=== PATIENT | female | born 1990 | race Caucasian/White ===

== ENCOUNTER → 2021-08-06 14:19 | Outpatient (CLI) | payer MEDICAID, SELFPAY | PROVIDERS: Visit Provider Obstetrics & Gynecology | DX: Z34.90 Encounter for supervision of normal pregnancy, unspecified, unspecified trimester (principal) | CPT/HCPCS: 36415; 84702 ==

== ENCOUNTER → 2021-09-02 13:26 | Outpatient (CLI) | payer MEDICAID, SELFPAY ==
--- NOTE | 2021-09-02 13:26 | US_ITS ---
PROCEDURE: US OB <= 14 WEEKS FETUS CLINICAL INDICATION: dates COMPARISON: No exams were available for comparison FINDINGS: An intrauterine gestational sac is present with a pole with a crown-rump length of 5.32cm correlating to gestational age of 12weeks. heart tones are present with an FHR of 154bpm. Yolk sac is noted. Placenta is forming posteriorly. IMPRESSION: Live IUP at 12 weeks Estimated due date by Ultrasound is 03/17/2022 Dictated by: Niels Fair MD 09/02/2021 18:31 Niels Fair MD in OV 09/02/2021 18:31
== END ==
PROVIDERS: PCP Nurse Practitioner Family; Visit Provider Obstetrics & Gynecology
DX: Z34.90 Encounter for supervision of normal pregnancy, unspecified, unspecified trimester (principal)
CPT/HCPCS: 76801

== ENCOUNTER → 2021-09-16 11:56 | Outpatient (CLI) | payer MEDICAID, SELFPAY ==
[2021-09-16 12:31] LABS: Basophils # 0.1 K/mm3 (0-0.2); Basophils % 0.5 % (0.1-2.0); Eosinophils # 2.2 K/mm3 (0.0-0.4); Eosinophils % 20.6 % (0.1-12.0); Hematocrit 37.3 % (37.0-47.0); Hemoglobin 13.1 g/dL (12.2-16.2); Lymphocytes # 1.7 K/mm3 (0.7-4.5); Lymphocytes % 16.1 % (10-50); Mean Corpuscular HGB Conc 35.2 g/dL (31.8-35.4); Mean Corpuscular Hemoglobin 31.5 pg (27.0-31.2); Mean Corpuscular Volume 89.4 fl (81-99); Mean Platelet Volume 8.9 fl (7.4-10.4); Monocytes # 0.4 K/mm3 (0.1-1.0); Monocytes % 3.8 % (1.7-9.3); Neutrophils # 6.4 K/mm3 (1.8-7.8); Platelet Count 193 K/mm3 (142-424); Red Blood Count 4.17 M/mm3 (4.20-5.40); Red Cell Distribution Width 13.8 % (11.5-17.5); White Blood Count 10.8 K/mm3 (4.8-10.8)
[2021-09-17 08:16] LABS: HIV Screen 4th Generation wRfx Non Reactive (Non Reactive); Rubella Antibodies, IgG <0.90 index (Immune >0.99)
[2021-09-17 11:47] LABS: Rapid Plasma Reagin Ab Titer Non Reactive (NonRea<1:1)
[2021-09-17 13:22] LABS: Hepatitis B Surface Antigen Negative (Negative); Hepatitis C Antibody <0.1 s/co ratio (0.0-0.9)
== END ==
PROVIDERS: Visit Provider Obstetrics & Gynecology
DX: Z34.90 Encounter for supervision of normal pregnancy, unspecified, unspecified trimester (principal)
CPT/HCPCS: 36415; 85025; 86592; 86703; 86762; 86850; 87340; 87380; G0432

== ENCOUNTER 2021-09-18 13:16 | Emergency (ER) | payer MEDICAID, SELFPAY ==
[2021-09-18 14:30] VITALS: BP 112/83; PULSE 91; RESP 19; TEMP 36.8; O2SAT 98; BMI 39.6
--- NOTE | 2021-09-18 14:46 | CA_ITS ---
APPROVED REPORT Right Upper Extremity Venous Study for DVT. Combustion Analyst: Tessa Thapa RVT Indications Upper Extremity Pain: Right Upper Extremity Edema: Right swelling rt hand/forearm,nki Vein Imaging IJV (R): Normal phasic flow is seen. Normal flow, augmentation and compression is seen. No evidence of Deep Vein Thrombosis. No abnormalities are demonstrated. SCV (R): Normal phasic flow is seen. Normal flow, augmentation and compression is seen. No evidence of Deep Vein Thrombosis. No abnormalities are demonstrated. Axillary (R): Normal phasic flow is seen. Normal flow, augmentation and compression is seen. No evidence of Deep Vein Thrombosis. No abnormalities are demonstrated. Brachial (R): Normal phasic flow is seen. Normal flow, augmentation and compression is seen. No evidence of Deep Vein Thrombosis. No abnormalities are demonstrated. Basilic (R): Compressible Cephalic (R): Compressible Radial (R): Compressible Ulnar (R): Compressible Findings Study suggests no evidence of DVT or SVT of the right upper extremity. Conclusion Study suggests no evidence of DVT or SVT of the right upper extremity. Critical Notification Physician Notified Date: 09/18/2021 Time: 15:32 Physician Name: Eboni Solitario Electronically signed by : Niels Fair MD 09/18/2021 17:17:48
--- NOTE | 2021-09-18 15:02 | HMH.EDUTC ---
[facility] [place] Clinical Impression: Wrist pain Qualifiers: Laterality: right Qualified Code(s): M25.531 - Pain in right wrist Disposition: Home, Self-Care Condition on Discharge: Good Instructions: DI for Wrist Pain Additional Instructions: *RICE, Rest the extremity, Ice 15-20 minutes 3-4 times daily, Compress- wear the castro wrap as discussed as much as possible to help reduce swelling and pain, Elevate the extremity when at rest *Castro wrap/Velcrol wrist splint is for support and help control swelling, use it except in the shower. Be sure that is not to tight but not to loose either *Elevate when resting Tylenol for pain Immediately follow up with your family doctor for new or worsening of symptoms, or no noticeable improvement over the next 3-5 days Referrals: Netta Joy [Primary Care Provider] - As needed Time of Disposition: 15:45 Medical Decision Making - Benedict Inquiry Pt receiving controlled substance: No Benedict was queried for this patient: No Vital Signs: 09/18/21 14:30 Temperature 98.3 F Temperature Source Oral Pulse Rate [Left Brachial] 91 H Respiratory Rate 19 Blood Pressure [Left Arm] 112/83 Blood Pressure Mean [Left Arm] 92 Blood Pressure Source [Left Arm] Automatic Cuff Blood Pressure Position [Left Arm] Sitting 02 Sat by Pulse Oximetry 98 Oxygen Delivery Method Room Air - US Data US Images: Upper Extremity ED US Reviewed: Yes: I have viewed radiologist's interpretation Preliminary Findings: Normal/NAD Findings Narrative: Conclusion Study suggests no evidence of DVT or SVT of the right upper extremity. [facility] [place] HPI - General Stated complaint: swollen right arm, no accident Time Seen by Provider: 09/18/21 15:02 Mode of Arrival: Ambulatory Source of Information: Patient Limitations: No Limitations Description of Symptoms (Recalled from Triage Doc. by RN): PATIENT C/O PAIN AND SWELLING TO RIGHT WRIST AND HAND SINCE YESTERDAY. DENIES INJURY. 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 and unsure if she may have hurt it that way - Related Data Home Medications Medication Instructions Recorded Confirmed hydrocortisone 1 % topical cream 1 applic TOPICAL QID PRN 09/16/21 09/16/21 Previous Rx's Medication Instructions Recorded prenat.vits,marianne,[id number] 1 tab PO DAILY #30 tab 09/16/21 Allergies Allergy/AdvReac Type Severity Reaction Status Date / Time tramadol Allergy Mild NA-NAUSEA Verified 09/16/21 10:58 latex Allergy Unknown I-RASH Verified 09/16/21 10:58 - Worker's Comp Is this a Worker's Comp case?: No [facility] History - Hepatitis A Screen Drug use history?: No High risk sexual behaviors?: No History of sexually transmitted infection?: No Currently employed?: No Childcare worker?: No Do you have indoor plumbing?: Yes Do you have electricity?: Yes Attestation statement:: This patient has been screened for Hepatitis A risk factors. I have reviewed the patient's past medical history: Yes Medical History: Reports:: Anxiety Amputation: No Fractures: No Comment: nerve repair on right arm. endometriosis - Social History Smoking Status: Current every day smoker Tobacco Type: cigarettes # Packs/Day (cigarettes): 1 Alcohol Intake: never Substance Use Type: denies use Occupational Status: employed - Psychiatric History Pschychiatric History:: Reports:: Anxiety Family Hx:: S
[2021-09-18 15:54] VITALS: BP 112/83; PULSE 91; RESP 19; TEMP 36.8; O2SAT 98
== END 2021-09-18 16:04 | disposition home or self-care (01) ==
PROVIDERS: Emergency Provider Nurse Practitioner; PCP Nurse Practitioner Family
DX: M25.531 Pain in right wrist (principal); Z3A.16 16 weeks gestation of pregnancy
CPT/HCPCS: 29125; 93971; 99202; G0463

== ENCOUNTER → 2021-10-31 13:12 | Outpatient (CLI) | payer MEDICAID, SELFPAY ==
--- NOTE | 2021-10-31 13:15 | US_ITS ---
PROCEDURE INFORMATION: Exam: US After First Trimester, Transabdominal Exam date and time: 10/31/2021 1:15 PM Age: 31 years old Clinical indication: Screening exam; Routine US, uterus; Additional info: Anatomy scan TECHNIQUE: Imaging protocol: Real-time transabdominal obstetrical ultrasound of the maternal pelvis and a second or third trimester with image documentation. COMPARISON: US OB <= 14 WEEKS FETUS 09/02/2021 1:54 PM FINDINGS: Gestation: Single live intrauterine gestation. heart rate: heart rate 142 bpm. presentation: Placenta: Placenta is posterior and anterior. Amniotic fluid: See Intraperitoneal space finding. ANATOMY: Anatomic survey:(No perinephric fluid collections or hydronephrosis. No gross osseous abnormality. Fluid within the stomach and urinary bladder. No defect at the cord insertion site. Ventricular outflow tracts not imaged. Amniotic fluid appears sufficient. Cerebellar distance 2 cm. Nose and lips appear unremarkable. Diaphragm appears unremarkable. No defect at the cord insertion site. Lateral ventricle subcentimeter in size). BIOMETRY: Estimated due date (AUA): Estimated due date 03-19-22 by ultrasound and 03-02-22 by last menstrual period. Gestational age (AUA): Single live intrauterine gestation with the estimated gestational age of approximately 20 weeks 1 day by ultrasound and 22 weeks 4 days by last menstrual period. Estimated weight: 351 g. Second percentile based on last menstrual period. Biparietal diameter (BPD): 4.5 cm. Nineteen weeks 4 days. Head circumference (HC): 16.5 cm. Nineteen weeks 2 days. Abdominal circumference (AC): 15.1 cm. Twenty weeks 3 days. Femur length (FL): 3.5 cm. Twenty-one weeks 0 days. biometric ratios: CI: 75% FL/AC: 23% HC/AC: 1.09 MATERNAL: Uterus: Unremarkable. Cervix: Cervical length 3.9 cm Right ovary/adnexa: Ovary is obscured by overlying bowel gas. Left ovary/adnexa: Ovary is obscured by overlying bowel gas. IMPRESSION: 1. Single live intrauterine gestation with the estimated gestational age of approximately 20 weeks 1 day by ultrasound and 22 weeks 4 days by last menstrual period. . 2. heart rate 142 bpm.
== END ==
PROVIDERS: PCP Nurse Practitioner Family; Visit Provider Obstetrics & Gynecology
DX: Z34.90 Encounter for supervision of normal pregnancy, unspecified, unspecified trimester (principal)
CPT/HCPCS: 76805

== ENCOUNTER 2022-01-06 14:39 | Emergency (ER) | payer MEDICAID, SELFPAY ==
[2022-01-06 14:40] VITALS: BP 138/76; PULSE 87; RESP 16; TEMP 36.4; O2SAT 97; BMI 42.4
--- NOTE | 2022-01-06 16:01 | HMH.EDUTC ---
[facility] [place] Clinical Impression: Bronchitis Sinusitis Qualifiers: Sinusitis location: unspecified location Chronicity: acute Recurrence: non-recurrent Qualified Code(s): J01.90 - Acute sinusitis, unspecified Qualifiers: Weeks of gestation: 36 weeks Qualified Code(s): Z3A.36 - 36 weeks gestation of Disposition: Home, Self-Care Condition on Discharge: Good Instructions: Sinusitis, DI for Sinusitis, DI for Acute Bronchitis Additional Instructions: Drink plenty of fluids. Take tylenol or ibuprofen for pain or fever. Take the medications as directed. Follow up with your regular doctor. GO TO THE ER FOR ANY WORSENING SYMPTOMS Prescriptions: guaiFENesin [Mucinex 600mg tablet] 1 - 2 tab PO BIDP PRN #30 tab PRN Reason: Congestion Transmission Status: Received by [facility] Azithromycin [Z-Jonah 250mg Tab*] 250 mg PO UD DOSE PK #6 tab Transmission Status: Received by [facility] Referrals: Netta Joy [Primary Care Provider] - Forms: Work/School Release Time of Disposition: 16:32 Medical Decision Making - Medical Records Medical records reviewed: No: I reviewed the patient's medical records. - Benedict Inquiry Pt receiving controlled substance: No Vital Signs: 01/06/22 14:40 01/06/22 16:37 Temperature 97.5 F L 98.0 F Temperature Source Oral Oral Pulse Rate 84 Pulse Rate [Right] 87 Respiratory Rate 16 16 Blood Pressure 130/70 Blood Pressure [Right Arm] 138/76 Blood Pressure Mean [Right Arm] 96 Blood Pressure Source Automatic Cuff Blood Pressure Source [Right Arm] Automatic Cuff Blood Pressure Position Sitting Blood Pressure Position [Right Arm] Sitting 02 Sat by Pulse Oximetry 97 Oxygen Delivery Method Room Air Room Air [facility] [place] - General Stated complaint: cough, congestion Time Seen by Provider: 01/06/22 16:03 Mode of Arrival: Ambulatory Source of Information: Patient Limitations: No Limitations Description of Symptoms (Recalled from Triage Doc. by RN): pt advises she has been feeling bad on and off for the past couple of weeks. C/o cough, congestion. Pt is 8 months HEENT Symptoms (Recalled from RN notes): Yes (cough,congestion) Resp Symptoms (Recalled from RN notes): No Skin Symptoms (Recalled from RN notes): No MS Symptoms (Recalled from RN notes): No Functional Status (Recalled from RN notes): na - History of Present Illness Provider Complaint: She has had sinus congestion, a productive cough and pleuritic type chest pain for the past 1 week. She is 8 months . She denies any othre complaints. - Related Data Previous Rx's Medication Instructions Recorded prenat.vits,marianne,[id number] 1 tab PO DAILY #30 tab 09/16/21 hydrocortisone 1 % topical cream 1 applic TOPICAL QID PRN #28.4 g 09/23/21 Azithromycin [Z-Jonah 250mg Tab*] 250 mg PO UD DOSE PK #6 tab 01/06/22 guaiFENesin [Mucinex 600mg tablet] 1 - 2 tab PO BIDP PRN #30 tab 01/06/22 Allergies Allergy/AdvReac Type Severity Reaction Status Date / Time tramadol Allergy Mild NA-NAUSEA Verified 12/23/21 14:06 latex Allergy Unknown I-RASH Verified 12/23/21 14:06 - Worker's Comp Is this a Worker's Comp case?: No [facility] History - Hepatitis A Screen Drug use history?: No High risk sexual behaviors?: No History of sexually transmitted infection?: No Currently employed?: No Childcare worker?: No Do you have indoor plumbing?: Yes Do you have electricity?: Yes Attestation statement:: This patient has been screened for Hepatitis A risk factors. I have reviewed the patient's past medical history: Yes Medical History: Reports:: Anxiety Amputation: No Fractures: No Comment: nerve repair on right arm. endometriosis - Social History Smoking Status: Current every day smoker Tobacco Type: cigarettes # Packs/Day (cigarettes): 1 Alcohol Intake: never Substance Use Type: denies use Occupational Status: employed - Psychiatric History Pschych
[2022-01-06 16:37] VITALS: BP 130/70; PULSE 84; RESP 16; TEMP 36.7; O2SAT 98
== END 2022-01-06 16:40 | disposition home or self-care (01) ==
PROVIDERS: Emergency Provider Nurse Practitioner Family; PCP Nurse Practitioner Family
DX: J01.90 Acute sinusitis, unspecified (principal); J20.9 Acute bronchitis, unspecified; Z3A.36 36 weeks gestation of pregnancy; F17.210 Nicotine dependence, cigarettes, uncomplicated
CPT/HCPCS: 99213; G0463

== ENCOUNTER 2022-01-10 20:30 | Emergency (ER) | payer MEDICAID, SELFPAY ==
[2022-01-10 20:31] VITALS: BP 126/69; PULSE 110; RESP 18; TEMP 36.8; O2SAT 97; BMI 41.9
--- NOTE | 2022-01-10 20:51 | HMH.EDUTC ---
[facility] [place] Clinical Impression: Muscle spasm Sinusitis Qualifiers: Sinusitis location: unspecified location Chronicity: unspecified Qualified Code(s): J32.9 - Chronic sinusitis, unspecified Disposition: Home, Self-Care Condition on Discharge: Good Instructions: Sinusitis, DI for Sinusitis, DI for Muscle Spasm Additional Instructions: Over the counter Biofreeze may help with muscle spasms and is available over the counter at most pharmacy's and safe for use in Warm compress may help Light massage of he area may help with pain and spasm Follow up with your Family Doctor if no improvement Return if needed Straight to ER if any life threatening symptoms Prescriptions: Cefdinir [Omnicef 300mg Capsule] 300 mg PO BID 7 Days #14 cap Transmission Status: Pending to [facility] Referrals: Netta Joy [Primary Care Provider] - As needed Time of Disposition: 20:59 Medical Decision Making - Benedict Inquiry Pt receiving controlled substance: No Benedict was queried for this patient: No Vital Signs: 01/10/22 20:31 Temperature 98.3 F Temperature Source Oral Pulse Rate [Right] 110 H Respiratory Rate 18 Blood Pressure [Right Arm] 126/69 Blood Pressure Mean [Right Arm] 88 Blood Pressure Source [Right Arm] Automatic Cuff Blood Pressure Position [Right Arm] Sitting 02 Sat by Pulse Oximetry 97 Oxygen Delivery Method Room Air [facility] [place] - General Stated complaint: sore throat, congestion, sob, H/A, vomiting Time Seen by Provider: 01/10/22 20:51 Mode of Arrival: Ambulatory Source of Information: Patient Limitations: No Limitations Description of Symptoms (Recalled from Triage Doc. by RN): cough, SOA since [facility] Symptoms (Recalled from RN notes): Yes (sore throat, SOA) Resp Symptoms (Recalled from RN notes): No Skin Symptoms (Recalled from RN notes): No MS Symptoms (Recalled from RN notes): No Functional Status (Recalled from RN notes): na - History of Present Illness Provider Complaint: Patient states that she is 8mths OB and was being treated for sinusitis and bronchitis State that she was coughing earlier and felt like she had a catch or spasm in her left upper shoulder area and felt like it was hard to breath and made her have a panic attack States that she also is still having sinus pain and pressure and doesnt think the medication has cleared up her sinsuses States that pain in shoulder does relieve some when she stretches - Related Data Previous Rx's Medication Instructions Recorded prenat.vits,marianne,[id number] 1 tab PO DAILY #30 tab 09/16/21 hydrocortisone 1 % topical cream 1 applic TOPICAL QID PRN #28.4 g 09/23/21 Azithromycin [Z-Jonah 250mg Tab*] 250 mg PO UD DOSE PK #6 tab 01/06/22 guaiFENesin [Mucinex 600mg tablet] 1 - 2 tab PO BIDP PRN #30 tab 01/06/22 Cefdinir [Omnicef 300mg Capsule] 300 mg PO BID 7 Days #14 cap 01/10/22 Allergies Allergy/AdvReac Type Severity Reaction Status Date / Time tramadol Allergy Mild NA-NAUSEA Verified 12/23/21 14:06 latex Allergy Unknown I-RASH Verified 12/23/21 14:06 - Worker's Comp Is this a Worker's Comp case?: No [facility] History - Hepatitis A Screen Drug use history?: No High risk sexual behaviors?: No History of sexually transmitted infection?: No Currently employed?: No Childcare worker?: No Do you have indoor plumbing?: Yes Do you have electricity?: Yes Attestation statement:: This patient has been screened for Hepatitis A risk factors. I have reviewed the patient's past medical history: Yes Medical History: Reports:: Anxiety Amputation: No Fractures: No Comment: nerve repair on right arm. endometriosis - Social History Smoking Status: Current every day smoker Tobacco Type: cigarettes # Packs/Day (cigarettes): 1 Alcohol Intake: never Substance Use Type: denies use Occupational Status: employed - Psychiatric History Pschychiatric History:: Reports:: Anxiety Family Hx:: Stroke, Thyroid Disorder, Alcohol
[2022-01-10 21:04] VITALS: BP 126/69; PULSE 110; RESP 16; TEMP 36.8; O2SAT 98
== END 2022-01-10 21:05 | disposition home or self-care (01) ==
PROVIDERS: Emergency Provider Nurse Practitioner; PCP Nurse Practitioner Family
DX: J32.9 Chronic sinusitis, unspecified (principal); J02.9 Acute pharyngitis, unspecified; J40 Bronchitis, not specified as acute or chronic; M62.830 Muscle spasm of back; R06.02 Shortness of breath; R11.10 Vomiting, unspecified; R51.9 Headache, unspecified; F17.210 Nicotine dependence, cigarettes, uncomplicated; N80.9 Endometriosis, unspecified; F41.9 Anxiety disorder, unspecified; Z79.899 Other long term (current) drug therapy; Z88.6 Allergy status to analgesic agent; Z91.040 Latex allergy status; Z83.2 Family history of diseases of the blood and blood-forming organs and certain disorders involving the immune mechanism; Z81.1 Family history of alcohol abuse and dependence; Z83.49 Family history of other endocrine, nutritional and metabolic diseases
CPT/HCPCS: 99283

== ENCOUNTER → 2022-02-12 09:57 | Outpatient (CLI) | payer MEDICAID, SELFPAY ==
[2022-02-12 10:33] LABS: Basophils # 0.1 K/mm3 (0-0.2); Basophils % 0.7 % (0.1-2.0); Eosinophils % 10.9 % (0.1-12.0); Hematocrit 33.6 % (37.0-47.0); Hemoglobin 11.6 g/dL (12.2-16.2); Lymphocytes # 1.4 K/mm3 (0.7-4.5); Lymphocytes % 14.8 % (10-50); Mean Corpuscular HGB Conc 34.4 g/dL (31.8-35.4); Mean Corpuscular Hemoglobin 31.8 pg (27.0-31.2); Mean Corpuscular Volume 92.5 fl (81-99); Mean Platelet Volume 9.7 fl (7.4-10.4); Monocytes # 0.5 K/mm3 (0.1-1.0); Monocytes % 5.7 % (1.7-9.3); Neutrophils # 6.3 K/mm3 (1.8-7.8); Neutrophils % 67.9 % (37.0-80.0); Platelet Count 160 K/mm3 (142-424); Red Blood Count 3.63 M/mm3 (4.20-5.40); Red Cell Distribution Width 14.7 % (11.5-17.5); White Blood Count 9.2 K/mm3 (4.8-10.8)
[2022-02-12 11:19] LABS: Glucose,Fasting 76 mg/dl (74-100)
[2022-02-12 14:31] LABS: Glucose 1 Hour 136 mg/dL (74-100)
== END ==
PROVIDERS: Visit Provider Obstetrics & Gynecology
DX: Z34.90 Encounter for supervision of normal pregnancy, unspecified, unspecified trimester (principal)
CPT/HCPCS: 36415; 82951; 85025; 86403

== ENCOUNTER → 2022-03-08 17:10 | Outpatient (CLI) | payer MEDICAID, SELFPAY ==
[2022-03-08 18:03] LABS: Chloride 107 mmol/L (98-107); Potassium 3.6 mmoL/L (3.5-5.1); Sodium 134 mmol/L (136-145)
[2022-03-08 18:05] LABS: Alanine Aminotransferase 19 U/L (12-78); Aspartate Amino Transferase 20 U/L (14-36); Blood Urea Nitrogen 7 mg/dl (7-17); Estimated Glomerular Filt Rate 145 ml/min (>60); GFR (African American) 175 ML/MIN (>60)
[2022-03-08 18:06] LABS: Albumin Level 2.9 g/dl (3.5-5.0); Alkaline Phosphatase 105 U/L (38-126); Anion Gap 5.6 mEq/L (5-15); Bilirubin,Total 0.3 mg/dl (0.2-1.3); Calcium 8.6 mg/dl (8.4-10.2); Carbon Dioxide 25 mmol/L (22.0-30.0); Globulin 2.8 g/dL (1.3-3.2); Glucose 121 mg/dl (74-100); Total Protein,Serum 5.7 g/dl (6.3-8.2)
[2022-03-08 18:07] LABS: Basophils # 0.1 K/mm3 (0-0.2); Basophils % 0.9 % (0.1-2.0); Eosinophils # 0.6 K/mm3 (0.0-0.4); Eosinophils % 5.3 % (0.1-12.0); Hematocrit 35.9 % (37.0-47.0); Hemoglobin 12.1 g/dL (12.2-16.2); Lymphocytes # 1.4 K/mm3 (0.7-4.5); Lymphocytes % 13.6 % (10-50); Mean Corpuscular HGB Conc 33.7 g/dL (31.8-35.4); Mean Corpuscular Hemoglobin 30.8 pg (27.0-31.2); Mean Corpuscular Volume 91.5 fl (81-99); Mean Platelet Volume 9.1 fl (7.4-10.4); Monocytes # 0.7 K/mm3 (0.1-1.0); Monocytes % 6.8 % (1.7-9.3); Neutrophils # 7.8 K/mm3 (1.8-7.8); Neutrophils % 73.4 % (37.0-80.0); Platelet Count 163 K/mm3 (142-424); Red Blood Count 3.92 M/mm3 (4.20-5.40); Red Cell Distribution Width 14.8 % (11.5-17.5); White Blood Count 10.6 K/mm3 (4.8-10.8)
== END ==
PROVIDERS: PCP Obstetrics & Gynecology; Visit Provider Obstetrics & Gynecology
DX: Z34.90 Encounter for supervision of normal pregnancy, unspecified, unspecified trimester (principal)
CPT/HCPCS: 36415; 80053; 85025; C9803; U0003; U0005

== ENCOUNTER 2022-03-10 05:47 | Inpatient (IN) | payer MEDICAID, SELFPAY ==
[2022-03-10] VITALS (13 sets, daily range): BP systolic 112–163; BP diastolic 58–100; PULSE 68–94; RESP 16–25; TEMP 36.6–36.8; O2SAT 94–99; BMI 43.5
[2022-03-10 06:20] LABS: Microscopic, Urine URINE MICROSCOPIC (MICROSCOPIC)
[2022-03-10 06:22] LABS: Appearance,Urine CLEAR (Clear); Bilirubin,Urine Negative (Negative); Blood, Urine Negative (Negative); Color,Urine YELLOW (Yellow); Glucose,Urine (UA) Negative (Negative); Ketones,Urine Negative (Negative); Leukocyte Esterase,Urine Negative (Negative); Nitrate,Urine Negative (Negative); PH,Urine 6.5 (5.0-8.5); Protein,Urine Negative (Negative); Specific Gravity, Urine 1.015 (1.005-1.030); Urobilinogen,Urine 0.2 EU/dl (0.2)
[2022-03-10 06:34] LABS: Bacteria,Urine Trace /lpf; WBC,Urine Occasional #/hpf (0-3)
--- NOTE | 2022-03-10 06:57 | P.PN_ITS ---
[facility] Anesthesia Checklist - Patient Identification Patient Identification: Arm Band - Structural Data Admitted From: Inpatient Planned Operative Procedure/s: C/S Consent for Planned Operative Procedure(s) Verified: Yes - NPO Status Verified Time NPO: 00:00 - Airway Assessment C-Spine Mobility Assessed: Yes TMJ Mobility Assessed: Yes Dentition: Good Dentition - Neurological Assessment Level of Consciousness: Awake Hx Seizures: No Numbness or tingling in extremities: No - Anesthesia Plan Anesthesia Risk discussed: Yes Anesthesia Plan: Verified ASA Class: II Anesthesia Type: Spinal [facility] History I have reviewed the patient's past medical history: Yes Medical History: Reports:: Anxiety *Have you ever received a pneumonia vaccine?: No *Have you received a flu vaccine this season?: No Anesthesia experience/problems:: None Other Surgeries: Yes: Amputation: No Fractures: No - *Social History Smoking Status: Current every day smoker Tobacco Type: cigarettes # Packs/Day (cigarettes): 1 Alcohol Intake: never Substance Use Type: denies use *Occupational Status:: employed *Travel in the last 8 weeks: None - Psychiatric History Pschychiatric History:: Reports:: Anxiety Family Hx:: Stroke, Thyroid Disorder, Alcoholism, Anemia Para: 3
[2022-03-10 07:16] LABS: Amphetamine/Metha Screen,Urine Negative ng/ml (<1000)
[2022-03-10 07:17] LABS: Barbiturates Screen,Urine Negative ng/ml (<200)
[2022-03-10 07:18] LABS: Benzodiazepines Screen,Urine Negative ng/ml (<200); Opiate Screen,Urine Negative ng/ml (<300)
[2022-03-10 07:19] LABS: Phencyclidine Screen,Urine Negative ng/ml (<25)
[2022-03-10 07:20] LABS: Cannabinoid Screen,Urine Negative ng/ml (<50)
[2022-03-10 07:21] LABS: Cocaine Screen,Urine Negative ng/ml (<300); Methadone Screen,Urine Negative ng/ml (<300)
--- NOTE | 2022-03-10 07:39 | HMH.HP ---
*Admission Date: 03/10/22 *Chief complaint: scheduled repeat c section *History of present illness: 39 weeks, previous c section Desires permanent sterilization with tubal ligation care at [facility] Failed 1 hr GCT but no 3 hr GTT Mild anemia Tobacco abuse [facility] History Medical History: Reports:: Anxiety Denies:: Seizures *Have you ever received a pneumonia vaccine?: No *Have you received a flu vaccine this season?: No Anesthesia experience/problems:: None Other Surgeries: Yes: Amputation: No Fractures: No - *Social History Smoking Status: Current every day smoker Tobacco Type: cigarettes # Packs/Day (cigarettes): 1 Alcohol Intake: never Substance Use Type: denies use *Occupational Status:: employed *Travel in the last 8 weeks: None - Psychiatric History Pschychiatric History:: Reports:: Anxiety Family Hx:: Stroke, Thyroid Disorder, Alcoholism, Anemia Para: 3 Review of Systems - Review of Systems Review of systems:: pertinent systems reviewed and negative unless documented below - *Genitourinary Denies abnormal vaginal bleeding Meds Home Medications Medication Instructions Recorded Confirmed Type Vit Calc,Iron,Folic [Kpn] 1 tab PO DAILY 03/10/22 03/10/22 History Allergies Allergy/AdvReac Type Severity Reaction Status Date / Time tramadol Allergy Mild NA-NAUSEA Verified 03/05/22 14:54 latex Allergy Unknown I-RASH Verified 03/05/22 14:54 Exam Vital signs and Labs for Last 24 Hours: Temp Pulse Resp BP Pulse Ox 98.2 F 92 H 18 112/60 97 03/10/22 06:28 03/10/22 06:28 03/10/22 06:28 03/10/22 06:28 03/10/22 06:28 Laboratory Results - last 24 hr 03/10/22 06:10: Blood Type A Positive, Antibody Screen Negative 03/10/22 06:10: Urine Opiates Screen Negative, Urine Methadone Screen Negative, Ur Barbituates Screen Negative, Ur Phencyclidine Scrn Negative, Ur Amphetamines Screen Negative, U Benzodiazepines Scrn Negative, Urine Cocaine Screen Negative, U Marijuana (THC) Screen Negative 03/10/22 06:10: Urine Color Yellow, Urine Appearance Clear, Urine pH 6.5, Ur Specific [place] 1.015, Urine Protein Negative, Urine Glucose (UA) Negative, Urine Ketones Negative, Urine Blood Negative, Urine Nitrate Negative, Urine Bilirubin Negative, Urine Urobilinogen 0.2, Ur Leukocyte Esterase Negative, Urine RBC None, Urine WBC Occasional, Ur Squamous Epith Cells 3-5, Urine Bacteria Trace I & O for Last 24 hours: Intake & Output 03/07/22 03/08/22 03/09/22 03/10/22 11:59 11:59 11:59 11:59 Weight 270 lb - Constitutional no acute distress - *Routine HEENT Exam Head: Present: normocephalic Eye: Absent: scleral injection ENT: Present: mucous membranes moist - *Routine Neck Exam Present: supple. Absent: lymphadenopathy - *Routine Respiratory Exam Present: CTA bilaterally - *Routine Cardiovascular Exam Present: RRR - *Routine Abdominal Exam Present: soft, normoactive bowel sounds. Absent: tenderness - *Routine Rectal Exam Rectal:: deferred - *Routine Genitalia Exam Genitalia:: normal female - *Routine Extremities Exam Absent: cyanosis, clubbing, edema - *Routine Skin Exam Present: warm. Absent: rash - *Routine Neurological Exam Present: alert, oriented X3 Assessment and Plan (1) Previous section Status: Acute Category: Surgical Code(s): Z98.891 - History of uterine scar from previous surgery (2) 39 weeks gestation of Status: Acute Category: Medical Code(s): Z3A.39 - 39 weeks gestation of (3) Anemia complicating Status: Acute Category: Medical Code(s): O99.019 - Anemia complicating , unspecified trimester (4) Morbid obesity with body mass index (BMI) of 40.0 or higher Status: Acute Category: Medical Code(s): E66.01 - Morbid (severe) obesity due to excess calories (5) Rubella non-immune status, antepartum Status: Acute Category: Medical Code(s): O99.891 - Other sp
--- NOTE | 2022-03-10 09:03 | SUR.OPER ---
0814-viable infant male born at this time
--- NOTE | 2022-03-10 09:24 | P.PN_ITS ---
[facility] [place] Anesthesia Record Part I Intake, IV Amount: 2,000 Estimated blood loss (mL): 1,000 Urine output (mL): 0 Blood Pressure: 150/73 SaO2: 97 Pulse Rate: 79 Respiratory Rate: 25 Temperature: 98 F Patient is:: Awake Stable to PACU at:: 09:20
--- NOTE | 2022-03-10 10:05 | HMH.OPNOTE ---
Date of procedure: 03/10/22 Pre-op Diagnosis:: 1. 39 weeks gestation 2. Previous c section 3. Undesired fertility 4. Anemia in 5. Tobacco abuse 6. BMI 44 Post-op Diagnosis:: same Procedure performed:: Low Transverse C Section Bilateral tubal occlusion Surgeon:: Tammie Stout MD Siebel Solution Architect(s):: Janey Boone DO ORACLE REPORTS DEVELOPER:: Shu Tiffanyсергей Anesthesia: spinal Estimated blood loss (mL): 1,000 Operative findings:: Grossly normal uterus, fallopian tubes and ovaries Vigorous male , apgars 8 (1 min) & 9 (5 min) Operative note:: The patient was taken to the OR and spinal was administered without difficulty. A pannus retractor was placed on the skin. The skin was prepped and draped in normal sterile fashion. A pfannenstiel skin incision was made with the scalpel and carried down to the fascia. The fascia was incised in the midline and sharply dissected off the rectus muscles. The muscles were in the midline and the peritoneum was entered sharply and extended bluntly. The Tony-O self retaining retractor was placed in the abdomen and a bladder flap was created. The uterus was incised in the lower uterine segment in a transverse fashion and extended bluntly. Amniotomy was performed and clear fluid noted. The infant was delivered in controlled fashion, without complication or shoulder dystocia. The was vigorous at and handed to awaiting air support operations operator and nursing staff for evaluation after the cord clamped and cut. Cord blood was collected and a cord segment was preserved. The placenta was manually extracted and noted to be intact. The uterus was repaired with 0-vicryl in a running/locked fashion. A second, imbricating layer was sewn with 0-vicryl. Filshie clips were then applied to bilateral fallopian tubes. The uterine incision was re-examined and hemostatic; the pelvis was irrigated with sterile water and cleared of all clot and debris. The peritoneum was closed with 2-0 vicryl in a running fashion. The fascia was closed with #1 vicryl in a running fashion. The subcutaneous fat was closed with 2-0 vicryl in an interrupted fashion. The skin was closed with 2-0 Stratafix in subcuticular fashion. The patient tolerated the procedure well. Sponge, lap, needle and instrument counts were correct x 2. EBL: 1000cc. She was taken to PACU awake and in stable condition. Condition: stable Disposition: PACU Specimens:: placenta cord blood Complications:: none
--- NOTE | 2022-03-10 11:06 | P.CONPHA_ITS ---
[facility] Pharmacy VTE Monitoring - Patient Demographics Admission date: 03/10/22 Report Date: 03/10/22 Time: 11:06 Allergies/Adverse Reactions: Patient Allergies tramadol Allergy (Mild, Verified 03/05/22 14:54) NA-NAUSEA latex Allergy (Unknown, Verified 03/05/22 14:54) I-RASH Height: 1.68 m Weight: 122.47 kg Patient Problems: Current Active Problems 39 weeks gestation of (Acute) Anemia complicating (Acute) Rubella non-immune status, antepartum (Acute) Previous section (Acute) Tobacco smoking affecting (Acute) Morbid obesity with body mass index (BMI) of 40.0 or higher (Acute) tubal ligation planned (Acute) - Prophylaxis VTE Prophylaxis Ordered?: Yes Types of VTE Prophylaxis: IPCS Thigh High Location of Applied Device: Bilateral Lower Extremeties
--- NOTE | 2022-03-10 13:02 | P.PN_ITS ---
[facility] Anesthesia Record Part II Discharge Time: 10:05 Destination: Obstetric PACU nurse assessment reviewed?: Yes Patient Condition:: Good Anesthesia Complications:: None Swallowing reflex intact?: Yes Cyanosis?: No Blood Pressure: 156/98 Pulse Rate: 69 Temperature: 97.9 F Mental Status: Alert & Oriented Pain level:: 5 Nausea and/or vomitting:: None Intake, IV Amount: 0
[2022-03-10 13:31] LABS: Microscopic,Cath URINE MICROSCOPIC (MICROSCOPIC)
[2022-03-10 13:32] LABS: Appearance,Urine/Cath CLEAR (Clear); Bilirubin,Cath Negative (Negative); Blood, Urine/Cath Negative (Negative); Color,Urine/Cath YELLOW (Yellow); Glucose,Urine/Cath (UA) Negative (Negative); Ketones,Urine/Cath Negative (Negative); Leukocyte Esterase,Cath Negative (Negative); Nitrate,Cath Negative (Negative); PH,Urine/Cath 7.5 (5.0-8.5); Protein,Urine/Cath Negative (Negative); Urobilinogen,Cath 0.2 EU/dl (0.2)
[2022-03-10 13:45] LABS: Squamous Epithelial Ur./Cath Occasional #/hpf (0-5); WBC,Urine/Cath Occasional #/hpf (0-3)
[2022-03-11 00:07] VITALS: BP 107/59; PULSE 75; RESP 18; TEMP 36.6; O2SAT 97
[2022-03-11 03:21] VITALS: BP 115/57; PULSE 76; RESP 18; TEMP 36.7
[2022-03-11 06:58] LABS: Hematocrit 31.1 % (37.0-47.0); Hemoglobin 10.6 g/dL (12.2-16.2)
--- NOTE | 2022-03-11 10:00 | HMH.ACPN2 ---
Internal Medicine - PN: Subj *Date: 03/11/22 *Time: 10:00 Interval history: POD # 1 Patient complains of severe pain under left side of incision. Initially pain was on the right but now it is on the left. Pain is better if she rests and worse with movement. Narcotic pain medication takes the edge off. She is bottle feeding. Light lochia. Denies headaches, vision changes and RUQ pain. Admits to bilateral lower extremity swelling. Tolerating regular diet. Passing flatus. Voiding without difficulty. Exam Vital signs and Labs for Last 24 Hours: Temp Pulse Resp BP Pulse Ox 98.1 F 76 18 115/57 L 97 03/11/22 03:21 03/11/22 03:21 03/11/22 03:21 03/11/22 03:21 03/11/22 00:07 Laboratory Results - last 24 hr 03/10/22 06:10: Blood Type A Positive, Antibody Screen Negative, Crossmatch (AHG) See Detail 03/10/22 08:00: Urine Color Yellow, Urine Appearance Clear, Urine pH 7.5, Ur Specific [place] 1.010, Urine Protein Negative, Urine Glucose (UA) Negative, Urine Ketones Negative, Urine Blood Negative, Urine Nitrate Negative, Urine Bilirubin Negative, Urine Urobilinogen 0.2, Ur Leukocyte Esterase Negative, Urine RBC None, Urine WBC Occasional, Ur Squamous Epith Cells Occasional, Urine Bacteria None 03/11/22 06:44: Hgb 10.6 L, Hct 31.1 L I & O for Last 24 hours: Intake & Output 03/08/22 03/09/22 03/10/22 03/11/22 23:59 23:59 23:59 23:59 Intake Total 1999 / 1999 Output Total 750 / 750 Balance 1250 / 1250 Weight 270 lb - Constitutional no acute distress - *Routine HEENT Exam Head: Present: normocephalic ENT: Present: mucous membranes moist - *Routine Neck Exam Present: full ROM - *Routine Respiratory Exam Present: CTA bilaterally - *Routine Cardiovascular Exam Present: RRR - *Routine Abdominal Exam Present: soft, normoactive bowel sounds, tenderness (tenderness to light palpation along left side of incision. Incision is clean/dry/intact with steri strips and Telfa with Tegaderm covering incision). Absent: distended - *Routine Extremities Exam Present: edema (+2 non pitting bilateral lower extremity edema), full ROM. Absent: calf tenderness - *Routine Neurological Exam Present: alert, oriented X3 Assessment and Plan (1) Previous section Status: Acute Category: Surgical Code(s): Z98.891 - History of uterine scar from previous surgery (2) 39 weeks gestation of Status: Acute Category: Medical Code(s): Z3A.39 - 39 weeks gestation of (3) Anemia complicating Status: Acute Category: Medical Code(s): O99.019 - Anemia complicating , unspecified trimester (4) Morbid obesity with body mass index (BMI) of 40.0 or higher Status: Acute Category: Medical Code(s): E66.01 - Morbid (severe) obesity due to excess calories (5) Rubella non-immune status, antepartum Status: Acute Category: Medical Code(s): O99.891 - Other specified diseases and conditions complicating ; Z28.3 - Underimmunization status (6) Tobacco smoking affecting Status: Acute Category: Medical Code(s): O99.330 - Smoking (tobacco) complicating , unspecified trimester (7) tubal ligation planned Status: Acute Category: Medical - Assessment and plan all Dx Assessment and Plan for all problems:: Continue routine care Discussed trying to get some rest/sleep today Pain control with PO medication Plan d/c home POD #2 or POD # 3
[2022-03-12 08:45] VITALS: BP 115/58; PULSE 83; RESP 20; TEMP 36.7; O2SAT 100
--- NOTE | 2022-03-12 09:16 | HMH.DCSUM ---
General - General Admission date:: 03/10/22 Discharge date: 03/12/22 HPI HPI: 39 weeks, previous c section Desires permanent sterilization with tubal ligation care at [facility] Failed 1 hr GCT but no 3 hr GTT Mild anemia Tobacco abuse Hospital Course Hospital Course: course uneventful She is discharged home on POD #2 in stable condition She is tolerating regular diet, ambulating and voiding without difficulty History of postop cellulitis after 2 previous c sections and concerned about risk for cellulitis again She will be discharged home with prophylactic antibiotics Rhogam Administration: Not Indicated Objective Vital signs: Temp Pulse Resp BP Pulse Ox 98.0 F 83 20 115/58 L 100 03/12/22 08:45 03/12/22 08:45 03/12/22 08:45 03/12/22 08:45 03/12/22 08:45 Narrative: CONSTITUTIONAL: no acute distress HEENT: mucous membranes moist PULMONARY: breathing unlabored without audible wheezes CV: no tachycardia or visible JVD; normal LE peripheral pulses ABD: soft, ND; appropriately tender but no rebound/guarding : fundus firm below umbilicus SKIN: incision well approximated with no drainage, erythema or induration EXT: 1+ edema LEs NEURO: alert/oriented, no altered mental status PSYCH: appropriate mood and demeanor without anxiety/depression Results Labs on day of discharge: Labs from last 24 hours 03/10/22 06:10 Crossmatch (AHG) See Detail DS: Diagnosis - Discharge Diagnosis (1) Previous section Status: Acute (2) 39 weeks gestation of Status: Acute (3) Anemia complicating Status: Acute (4) Morbid obesity with body mass index (BMI) of 40.0 or higher Status: Acute (5) Rubella non-immune status, antepartum Status: Acute (6) Tobacco smoking affecting Status: Acute (7) tubal ligation planned Status: Acute Discharge Plan - Patient Discharge Instructions ACTIVITY: Continue current activity DIET: regular diet Patient Instructions: Depression, Hemorrhage, DI for Pre-eclampsia, Surgical Site Infection, [facility] Post Discharge Instructions, Preventing the Spread of Coronavirus Discharge Instructions - Follow up Plan Disposition: Home, Self-Care Condition at discharge:: Stable Home Medications: Home Medications Medication Instructions Recorded Confirmed Type Vit Calc,Iron,Folic [Kpn] 1 tab PO DAILY 03/10/22 03/10/22 History Ibuprofen [Motrin 400mg 800 mg PO Q6HP PRN #40 tab 03/12/22 Rx tablet] Oxycodone HCl [OxyIR 5mg tablet] 10 mg PO Q6HP PRN #30 tab 03/12/22 Rx cephALEXin [cephALEXin 500mg 500 mg PO TID #21 cap 03/12/22 Rx capsule*] Prescriptions/Medication Reconciliation: New Acetaminophen [Acetaminophen 325mg tab] 650 mg PO Q4HP PRN tab PRN Reason: Mild Pain with NSAID Oxycodone HCl [OxyIR 5mg tablet] 10 mg PO Q6HP PRN #30 tab PRN Reason: Moderate To Severe Pain Ibuprofen [Motrin 400mg tablet] 800 mg PO Q6HP PRN #40 tab PRN Reason: Mild To Moderate Pain Continued Vit Calc,Iron,Folic [Kpn] 1 tab PO DAILY - Problem Reconciliation Problems Reviewed?: Yes
== END 2022-03-12 13:50 | disposition home or self-care (01) | DRG 785 ==
PROVIDERS: Admitting Provider Obstetrics & Gynecology; PCP Nurse Practitioner Family; Visit Provider Obstetrics & Gynecology
PROC: 0UL70ZZ Occlusion of Bilateral Fallopian Tubes, Open Approach (ICD-10-PCS; CPT 59514; principal; 2022-03-10 07:30)
DX: O34.211 Maternal care for low transverse scar from previous cesarean delivery (principal); N85.8 Other specified noninflammatory disorders of uterus; Z3A.39 39 weeks gestation of pregnancy; Z37.0 Single live birth; Z30.2 Encounter for sterilization; Z23 Encounter for immunization
CPT/HCPCS: 59514; 58611; 36415; 59025; 80053; 80305; 81001; 85014; 85018; 85025; 86850; 90707; 94761; C9290; C9803; G0283; J2405; U0003; U0005

== ENCOUNTER 2022-03-18 13:43 | Outpatient (CLI) | payer MEDICAID, SELFPAY ==
[2022-03-18 13:51] VITALS: BMI 41.8
[2022-03-18 14:08] LABS: Microscopic, Urine URINE MICROSCOPIC (MICROSCOPIC)
[2022-03-18 14:13] LABS: Appearance,Urine CLEAR (Clear); Bilirubin,Urine Negative (Negative); Blood, Urine 1+ (Negative); Color,Urine YELLOW (Yellow); Glucose,Urine (UA) Negative (Negative); Ketones,Urine Negative (Negative); Leukocyte Esterase,Urine Negative (Negative); Nitrate,Urine Negative (Negative); PH,Urine 6.5 (5.0-8.5); Protein,Urine Negative (Negative)
[2022-03-18 14:26] VITALS: BP 143/79; PULSE 64; RESP 18; BMI 41.8
[2022-03-18 14:26] LABS: Bacteria,Urine 2+ /lpf
== END 2022-03-18 14:23 | disposition home or self-care (01) ==
LOC: OBOUT 13:44 → OB 13:45
PROVIDERS: PCP Nurse Practitioner Family; Visit Provider Obstetrics & Gynecology
DX: O12.05 Gestational edema, complicating the puerperium (principal)
CPT/HCPCS: 81001; 87086; G0463

== ENCOUNTER 2022-09-23 21:10 | Emergency (ER) | payer MEDICAID, SELFPAY ==
[2022-09-23 21:11] VITALS: BP 121/70; PULSE 63; RESP 17; TEMP 36.7; O2SAT 98; BMI 36.8
[2022-09-23 21:24] VITALS: BMI 36.8
[2022-09-23 21:54] LABS: Basophils # 0.1 K/mm3 (0-0.2); Basophils % 1.2 % (0.1-2.0); Eosinophils # 0.6 K/mm3 (0.0-0.4); Eosinophils % 7.5 % (0.1-12.0); Hematocrit 40.6 % (37.0-47.0); Hemoglobin 13.5 g/dL (12.2-16.2); Lymphocytes # 2.4 K/mm3 (0.7-4.5); Mean Corpuscular HGB Conc 33.3 g/dL (31.8-35.4); Mean Corpuscular Hemoglobin 29.3 pg (27.0-31.2); Mean Platelet Volume 9.6 fl (7.4-10.4); Monocytes # 0.5 K/mm3 (0.1-1.0); Monocytes % 6.2 % (1.7-9.3); Neutrophils # 4.6 K/mm3 (1.8-7.8); Neutrophils % 56.1 % (37.0-80.0); Platelet Count 284 K/mm3 (142-424); Red Blood Count 4.61 M/mm3 (4.20-5.40); Red Cell Distribution Width 14.3 % (11.5-17.5); White Blood Count 8.3 K/mm3 (4.8-10.8)
[2022-09-23 21:55] LABS: Chloride 107 mmol/L (98-107); Potassium 4.1 mmoL/L (3.5-5.1); Sodium 138 mmol/L (136-145)
[2022-09-23 21:58] LABS: Anion Gap 8.1 mEq/L (5-15); Blood Urea Nitrogen 19 mg/dl (7-17); Calcium 8.7 mg/dl (8.4-10.2); Carbon Dioxide 27 mmol/L (22.0-30.0); Creatinine Clearance Estimated 166 mL/min (50-200); Estimated Glomerular Filt Rate 84 ml/min (>60); GFR (African American) 101 ML/MIN (>60); Glucose 99 mg/dl (74-100)
--- NOTE | 2022-09-23 22:09 | HMH.EDDENT ---
Discharge Plan Disposition Patient Disposition: Home, Self-Care Prescriptions Prescriptions: New clindamycin HCl 300 mg capsule 300 mg PO TID Qty: 30 0RF ketorolac 10 mg tablet 10 mg PO TID 3 Days Qty: 9 0RF No Action furosemide 20 mg tablet 20 mg PO BID Qty: 14 0RF nystatin 100,000 unit/gram cream 1 applic TP TID Qty: 30 2RF oxycodone 5 mg tablet 5 mg PO Q6H PRN (Reason: pain) Qty: 20 0RF prenat.vits,marianne,[id number] 1 EACH tablet 1 tab PO DAILY acetaminophen 325 MG tablet 650 mg PO Q4HP PRN (Reason: Mild Pain with NSAID) 0RF ibuprofen 400 MG tablet 800 mg PO Q6HP PRN (Reason: Mild To Moderate Pain) Qty: 40 1RF oxycodone 5 MG tablet 10 mg PO Q6HP PRN (Reason: Moderate To Severe Pain) Qty: 30 0RF cephalexin 500 MG capsule 500 mg PO TID Qty: 21 0RF Referrals Follow up/Referrals: Netta Joy [Primary Care Provider] - See instructions Clinical Impressions Clinical Impression: Dental infection Instructions Patient Instructions: DI for Dental Pain Discharge ED Provider: [facility] HPI General Chief complaint: Dental/Oral Stated complaint: facial swelling Time Seen by Provider: 09/23/22 22:09 Mode of Arrival: Family Vehicle Source of Information: Patient Limitations: No Limitations Description of Symptoms (Recalled from ER Triage Doc. by RN): Pt c/o L sided jaw swelling and pain. She reports i have a bad tooth but am having a hard time getting referred to a oral surgeon. Pt states she has been taking leftover Amoxicillin for the past 3 days, as well as the 800mg Ibuprofen, 3x Marisol aspirin, and leftover hydrocodone. History of Present Illness HPI Narrative: lt jaw swelling with dental pain over the last few days MD Complaint: tooth pain Onset (ago): day(s) Duration: intermittent Severity: moderate Context: history of dental caries Associated symptoms: gum swelling Treatment prior to arrival: oral analgesic Related Data Home Medications Medication Instructions Recorded Confirmed prenat.vits,marianne,[id number] 1 tab PO DAILY Supplement 03/10/22 03/20/22 Previous Rx's Medication Instructions Recorded acetaminophen 325 mg tablet 650 mg PO Q4HP PRN Mild Pain with 03/12/22 NSAID cephalexin 500 mg capsule 500 mg PO TID #21 caps 03/12/22 ibuprofen 400 mg tablet 800 mg PO Q6HP PRN Mild To 03/12/22 Moderate Pain #40 tabs oxycodone 5 mg tablet 10 mg PO Q6HP PRN Moderate To 03/12/22 Severe Pain #30 tabs furosemide 20 mg tablet 20 mg PO BID #14 tabs 03/20/22 nystatin 100,000 unit/gram topical 1 applic topical TID #30 grams 03/20/22 cream oxycodone 5 mg tablet 5 mg PO Q6H PRN pain #20 tabs 03/20/22 clindamycin HCl 300 mg capsule 300 mg PO TID #30 caps 09/23/22 ketorolac 10 mg tablet 10 mg PO TID 3 days #9 tabs 09/23/22 Allergies Allergy/AdvReac Type Severity Reaction Status Date / Time tramadol Allergy Mild NA-NAUSEA Verified 03/20/22 11:57 latex Allergy Unknown I-RASH Verified 03/20/22 11:57 PFSH PFSH Social History Smoking Status: Current every day smoker tobacco type: cigarettes packs per day: 1 alcohol intake: never substance use type: denies use current occupational status: employed Travel in the last 8 weeks: None ROS Obtained: Yes All systems reviewed & no additional complaints except as documented Physical Exam General General appearance: alert Head Head exam: normocephalic Eye Eye exam: Present PERRL and EOMI; Absent scleral icterus ENT ENT exam: Present mucous membranes dry and other (has gingival tenderness without abscess) Neck Neck exam: Present full ROM Respiratory Respiratory exam: Absent respiratory distress Cardiovascular Cardiovascular exam: Present regular rate Extremities Exam Extremities exam: Present full ROM Neurological Exam Neurological exam: Present alert, oriented X3 and CN II-XII intact Psychiatric Psychiatric exam: Absent anxious Skin Skin exam: Absent rash
[2022-09-23 22:27] VITALS: BP 120/68; PULSE 62; RESP 18; TEMP 36.6; O2SAT 98
== END 2022-09-23 22:30 | disposition home or self-care (01) ==
PROVIDERS: Emergency Provider Emergency Medicine; PCP Nurse Practitioner Family
DX: K04.7 Periapical abscess without sinus (principal); Z88.6 Allergy status to analgesic agent; Z91.040 Latex allergy status
CPT/HCPCS: 80048; 85025; 96365; 96375; 99284; J0696

== ENCOUNTER 2023-07-19 18:09 | Emergency (ER) | payer MEDICAID, SELFPAY ==
[2023-07-19 18:30] VITALS: BP 104/66; PULSE 64; RESP 18; TEMP 36.7; O2SAT 100; BMI 33.7
--- NOTE | 2023-07-19 18:54 | EXP.UTC ---
Discharge Plan Disposition Patient Disposition: Home, Self-Care Condition: Good Prescriptions Prescriptions: New phenazopyridine [Pyridium] 200 mg tablet 200 mg PO Q8H 2 Days Qty: 6 0RF ciprofloxacin HCl [Cipro] 500 mg tablet 500 mg PO BID 7 Days Qty: 14 0RF ondansetron 4 mg Tablet,Disintegrating 4 mg PO Q8H PRN (Reason: Nausea) Qty: 12 0RF No Action furosemide 20 mg tablet 20 mg PO BID Qty: 14 0RF nystatin 100,000 unit/gram cream 1 applic TP TID Qty: 30 2RF oxycodone 5 mg tablet 5 mg PO Q6H PRN (Reason: pain) Qty: 20 0RF prenat.vits,marianne,[id number] 1 EACH tablet 1 tab PO DAILY acetaminophen 325 MG tablet 650 mg PO Q4HP PRN (Reason: Mild Pain with NSAID) 0RF ibuprofen 400 MG tablet 800 mg PO Q6HP PRN (Reason: Mild To Moderate Pain) Qty: 40 1RF oxycodone 5 MG tablet 10 mg PO Q6HP PRN (Reason: Moderate To Severe Pain) Qty: 30 0RF cephalexin 500 MG capsule 500 mg PO TID Qty: 21 0RF clindamycin HCl 300 mg capsule 300 mg PO TID Qty: 30 0RF ketorolac 10 mg tablet 10 mg PO TID 3 Days Qty: 9 0RF Referrals Follow up/Referrals: Daphney Mcdowell APRN [Primary Care Provider] - See instructions Activity Restrictions/Add. Instructions Additional Instructions/Restrictions: Drink plenty of fluids. Take tylenol or ibuprofen for pain or fever. Take the medications as directed. Follow up with your regular doctor. GO TO THE ER FOR ANY WORSENING SYMPTOMS The pyridium will make your urine turn orange, this is an expected side effect. It will stain your clothes if it comes into contact with them. We will culture the urine. That will tell what bacteria is causing your infection and which antibiotics will treat it best. Sometimes the first antibiotic we prescribe turns out to not work against different bacteria. So, make sure you follow up within 3 days if you are not getting better. Clinical Impressions Clinical Impression: UTI (urinary tract infection) Instructions Patient Instructions: Urinary Tract Infection, Urine Culture, DI for Urinary Tract Infection (UTI), Phenazopyridine Discharge ED Provider: Romero Jose [facility] HPI General Stated complaint: possible UTI Time Seen by Provider: 07/19/23 18:54 History of Present Illness Provider Complaint: She states that for the past 3 days she has had worsening low back pain, dysuria, and urinary frequency. Related Data Home Medications Medication Instructions Recorded Confirmed prenat.vits,marianne,[id number] 1 tab PO DAILY Supplement 03/10/22 03/20/22 Previous Rx's Medication Instructions Recorded acetaminophen 325 mg tablet 650 mg PO Q4HP PRN Mild Pain with 03/12/22 NSAID cephalexin 500 mg capsule 500 mg PO TID #21 caps 03/12/22 ibuprofen 400 mg tablet 800 mg PO Q6HP PRN Mild To 03/12/22 Moderate Pain #40 tabs oxycodone 5 mg tablet 10 mg PO Q6HP PRN Moderate To 03/12/22 Severe Pain #30 tabs furosemide 20 mg tablet 20 mg PO BID #14 tabs 03/20/22 nystatin 100,000 unit/gram topical 1 applic topical TID #30 grams 03/20/22 cream oxycodone 5 mg tablet 5 mg PO Q6H PRN pain #20 tabs 03/20/22 clindamycin HCl 300 mg capsule 300 mg PO TID #30 caps 09/23/22 ketorolac 10 mg tablet 10 mg PO TID 3 days #9 tabs 09/23/22 ciprofloxacin HCl 500 mg tablet 500 mg PO BID 7 days #14 tabs 07/19/23 (Cipro) ondansetron 4 mg disintegrating 4 mg PO Q8H PRN Nausea #12 tabs 07/19/23 tablet phenazopyridine 200 mg tablet 200 mg PO Q8H 2 days #6 tabs 07/19/23 (Pyridium) Allergies Allergy/AdvReac Type Severity Reaction Status Date / Time tramadol Allergy Mild NA-NAUSEA Verified 07/19/23 19:09 latex Allergy Unknown I-RASH Verified 07/19/23 19:09 [facility] Disclaimer: The information contained in this section may have been updated after the patient was seen, as this information can be updated by other users. Social History Smoking S
[2023-07-19 19:27] LABS: Microscopic, Urine URINE MICROSCOPIC (MICROSCOPIC)
[2023-07-19 19:30] LABS: Appearance,Urine CLEAR (Clear); Bilirubin,Urine Negative (Negative); Blood, Urine Negative (Negative); Color,Urine YELLOW (Yellow); Glucose,Urine (UA) Negative (Negative); Ketones,Urine Negative (Negative); Leukocyte Esterase,Urine 1+ (Negative); Nitrate,Urine Negative (Negative); Protein,Urine Negative (Negative); Specific Gravity, Urine 1.015 (1.005-1.030); Urobilinogen,Urine 0.2 EU/dl (0.2)
[2023-07-19 20:02] VITALS: BP 104/66; PULSE 64; RESP 18; TEMP 36.7; O2SAT 100
== END 2023-07-19 19:45 | disposition home or self-care (01) ==
PROVIDERS: Emergency Provider Nurse Practitioner Family; PCP Nurse Practitioner
DX: N39.0 Urinary tract infection, site not specified (principal); M54.59 Other low back pain; F17.210 Nicotine dependence, cigarettes, uncomplicated; B96.89 Other specified bacterial agents as the cause of diseases classified elsewhere
CPT/HCPCS: 81001; 87086; 99212; 99214; G0463

== ENCOUNTER 2023-11-12 14:48 | Outpatient (CLI) | payer MEDICAID, SELFPAY ==
[2023-11-12 15:01] LABS: Basophils # 0.1 K/mm3 (0-0.2); Eosinophils # 0.5 K/mm3 (0.0-0.4); Eosinophils % 6.5 % (0.1-12.0); Hematocrit 42.1 % (37.0-47.0); Hemoglobin 14.5 g/dL (12.2-16.2); Lymphocytes # 2.1 K/mm3 (0.7-4.5); Mean Corpuscular HGB Conc 34.5 g/dL (31.8-35.4); Mean Corpuscular Hemoglobin 31.3 pg (27.0-31.2); Mean Corpuscular Volume 90.6 fl (81-99); Mean Platelet Volume 9.1 fl (7.4-10.4); Monocytes # 0.6 K/mm3 (0.1-1.0); Monocytes % 7.2 % (1.7-9.3); Neutrophils % 60.3 % (37.0-80.0); Platelet Count 274 K/mm3 (142-424); Red Blood Count 4.64 M/mm3 (4.20-5.40); Red Cell Distribution Width 13.2 % (11.5-17.5); White Blood Count 8.3 K/mm3 (4.8-10.8)
== END 2023-11-12 23:59 ==
LOC: LAB 14:49
PROVIDERS: Visit Provider Obstetrics & Gynecology
DX: N93.9 Abnormal uterine and vaginal bleeding, unspecified (principal)
CPT/HCPCS: 36415; 85025

== ENCOUNTER 2024-06-04 14:21 | Emergency (ER) | payer MEDICAID, SELFPAY ==
[2024-06-04 14:40] VITALS: BP 119/67; PULSE 127; RESP 20; TEMP 37.1; O2SAT 96; BMI 28.3
--- NOTE | 2024-06-04 15:09 | EXP.UTC ---
Discharge Plan Disposition Patient Disposition: Home, Self-Care Condition: Good Prescriptions Prescriptions: New metronidazole 500 mg tablet 500 mg PO BID 7 Days Qty: 14 0RF No Action phentermine 37.5 mg tablet 37.5 mg PO DAILY Patient Comments: TAKE ONE TABLET BY MOUTH EVERY DAY vitamin B complex Tablet 1 tab PO DAILY Referrals Follow up/Referrals: Netta Joy [Primary Care Provider] - See instructions Activity Restrictions/Add. Instructions Additional Instructions/Restrictions: Follow up with your OBGYN if no improvement of symptoms Return if needed Straight to ER if any life threatening symptoms Follow up with your Family Doctor if needed You were tested for today for Upper Respiratory Panel with COVID19 your test result should be back in the next 24hours, you may check your results on the [facility] Clinical Impressions Clinical Impression: Bacterial vaginosis Instructions Patient Instructions: DI for Bacterial Vaginosis, Metronidazole Print Language Print Language: Burmese Discharge ED Provider: Eboni Solitario [facility] [place] HPI General Stated complaint: uti headache Mode of Arrival: Ambulatory Source of Information: Patient Limitations: No Limitations Time Seen by Provider: 06/04/24 15:09 Description of Symptoms (Recalled from Triage Doc. by RN): PATIENT C/O BODY ACHES THAT STARTED TODAY AND POSSIBLE UTI OR BACTERIAL INFECTION HEENT Symptoms (Recalled from RN notes): No Resp Symptoms (Recalled from RN notes): No Skin Symptoms (Recalled from RN notes): No MS Symptoms (Recalled from RN notes): No Functional Status (Recalled from RN notes): WNL History of Present Illness Provider Complaint: Patient states that she was recently around family friend that tested positive for COVID States that also she thinks she may have uti or bacterial infection she has been having some burning with urination also having fishy like odor and she did recently change soap Related Data Home Medications ?Medication ?Instructions ?Recorded ?Confirmed phentermine 37.5 mg tablet 37.5 mg PO DAILY 02/11/24 06/04/24 vitamin B complex 1 tab PO DAILY 02/11/24 06/04/24 Previous Rx's ?Medication ?Instructions ?Recorded metronidazole 500 mg tablet 500 mg PO BID 7 days #14 tabs 06/04/24 Allergies Allergy/AdvReac Type Severity Reaction Status Date / Time tramadol Allergy Mild NA-NAUSEA Verified 02/11/24 10:45 latex Allergy Unknown I-RASH Verified 02/11/24 10:45 Worker's Comp Is this a Worker's Comp case?: No [facility] Disclaimer: The information contained in this section may have been updated after the patient was seen, as this information can be updated by other users. Medical History Contact dermatitis Endometriosis Surgical History Herod teeth extracted Hx of tubal ligation Previous section Family History Other Asthma Cancer Diabetes Hypertension Social History Smoking Status: Current every day smoker tobacco type: e-cigarettes alcohol intake: never substance use type: denies use current occupational status: employed Travel in the last 8 weeks: None ROS Obtained: Yes All systems reviewed & no additional complaints except as documented and Yes Systems reviewed as appropriate & no additional complaints except as documented Constitutional Constitutional: Reports system reviewed and no additional complaints, except as documented and Reports as per HPI ENT Ears, Nose, Mouth, and Throat: Reports system reviewed and no additional complaints, except as documented and Reports as per HPI Cardiovascular Cardiovascular: Reports system reviewed and no additional complaints, except as documented and Reports as per HPI Respiratory Respiratory: Reports system reviewed and no additional complaints, except as documented and Reports as per HPI Gastrointestinal Gastrointestingal: Reports system reviewed and no additional complaints, except as documented and as per HPI Genitourinary Female Genitourinary: Reports system reviewed and no additional complaints, except as documented, Reports as per HPI, Reports dysuria, Reports urinary frequency, Reports urinary urgency and Reports vaginal odor (with slight discharge and fishy odor) Physical Exam General General appearance: alert and in no apparent distress ENT ENT exam: Present mucous membranes moist Respiratory Respiratory exam: Present normal lung sounds bilaterally; Absent respiratory distress or wheezes Cardiovascular Cardiovascular exam: Present regular rate, normal rhythm and normal heart sounds Abdominal Exam Abdominal exam: Present soft and normal bowel sounds; Absent distention or tenderness Neurological Exam Neurological exam: Present alert, oriented X3 and normal gait Medical Decision Making Benedict Inquiry Pt receiving controlled substance: No Benedict was queried for this patient: No Vital Signs: 06/04/24 14:40 Temperature 98.8 F Temperature Source Temporal Artery Scan Pulse Rate [Right Brachial] 127 H Respiratory Rate 20 Blood Pressure [Right Arm] 119/67 Blood Pressure Mean [Right Arm] 84 Blood Pressure Source [Right Arm] Automatic Cuff Blood Pressure Position [Right Arm] Sitting 02 Sat by Pulse Oximetry 96 Oxygen Delivery Method Room Air Lab Data Lab results reviewed: Yes I reviewed the patient's lab results. Orders (Tests/Meds): ORDERS Category Date Time Status Full Resp Panel w/COVID ([facility]) Routine Lab 06/04/24 15:05 Ordered
[2024-06-04 15:22] LABS: Apearance,Urine Clear (Clear); Bilirubin,Urine 1+ (Negative); Blood, Urine Negative (Negative); Color,Urine Amber (Yellow); Glucose,Urine (UA) Negative (Negative); Ketones,Urine Negative (Negative); Protein,Urine Trace (Negative); Specific Gravity, Urine >= 1.030 (1.005-1.030); UTC Leukocyte Esterase,Urine Negative (Negative); UTC Nitrate,Urine Negative (Negative); Urobilinogen,Urine 2 EU/dl (0.2)
[2024-06-04 15:26] VITALS: BP 119/67; PULSE 127; RESP 20; TEMP 37.1; O2SAT 96
[2024-06-04 15:50] LABS: Adenovirus,PCR Not Detected (NotDetected); Bordetella Pertussis Not Detected (NotDetected); Chlamydophila Pneumoniae, PCR Not Detected (NotDetected); Coronavirus 19, PCR Not Detected (NotDetected); Coronavirus 229E Not Detected (NotDetected); Coronavirus NL63 Not Detected (NotDetected); Coronavirus OC43 Not Detected (NotDetected); Coronovirus HKU1,PCR Not Detected (NotDetected); Human Metapneumovirus Not Detected (NotDetected); Influenza A, PCR Not Detected (NotDetected); Influenza AH1, 2009 Not Detected (NotDetected); Influenza AH1, PCR Not Detected (NotDetected); Influenza AH3,PCR Not Detected (NotDetected); Influenza B, PCR Not Detected (NotDetected); Mycoplasma Pneumoniae, PCR Not Detected (NotDetected); Parainfluenza 1, PCR Not Detected (NotDetected); Parainfluenza 2, PCR Not Detected (NotDetected); Parainfluenza 3, PCR Not Detected (NotDetected); Parainfluenza 4, PCR Not Detected (NotDetected); Respiratory Syncytial Virus Not Detected (NotDetected); Rhinovirus/Enterovirus Not Detected (NotDetected)
== END 2024-06-04 15:39 | disposition home or self-care (01) ==
PROVIDERS: Emergency Provider Nurse Practitioner; PCP Nurse Practitioner Family
DX: N76.0 Acute vaginitis (principal); R30.0 Dysuria
CPT/HCPCS: 81003; 87581; 87632; 87635; 87798; 99212; 99214; G0463